=== PATIENT | male | born 2000 | race Caucasian/White ===

== ENCOUNTER 2020-03-03 13:48 | Emergency (ER) | payer OTHER ==
[~2020-03-03] VITALS: Ht 162.6 cm; Wt 86.2 kg
[~2020-03-03 13:48] MED LIST: ABILIFY 5 MG TAB5 M1; ACETAMINOPHEN-1 EAC1 PO; AMOXICILLI400 MG/5 M PO; DEPAKENE250 MG; DESYREL; DESYREL100 MG; DEXEDRINE10 MG PO; IBUPROFEN 600600 M1 PO; INTUNIV2 MG PO; INTUNIV3 MG PO; LITHIUM CARBON300 M6 PO; SEROQUEL; STRATTERA60 MG PO; STRATTERA80 MG PO; TENEX1 MG; VYVANSE60 MG PO; ZOLOFT25 MG PO; ZYRTEC1 MG/1 ML PO; [UNRECOGNIZED DRUG - OTHER]
[2020-03-03] MEDS ORDERED: TRAMADOL 50 MG50 MG PO (14:57)
[2020-03-03 15:12] VITALS: BP 162/77
== END 2020-03-03 15:13 | disposition home or self-care (01) ==
LOC: M.ERS 13:48
DX: S90.122A Contusion of left lesser toe(s) without damage to nail, initial encounter (principal); W22.8XXA Striking against or struck by other objects, initial encounter; Y93.89 Activity, other specified; Y92.89 Other specified places as the place of occurrence of the external cause; Y99.8 Other external cause status

== ENCOUNTER 2020-03-30 17:37 | Emergency (ER) | payer OTHER ==
[~2020-03-30] VITALS: Ht 162.6 cm; Wt 81.7 kg
[~2020-03-30 17:37] MED LIST changes: +TRAMADOL 50 MG50 MG PO
[2020-03-30] MEDS ORDERED: LOTRIMIN AF12 GM TOP (18:06)
[2020-03-30] MEDS ORDERED: TRIAMCINOLONE A80 G2 TOP (18:06)
[2020-03-30 18:22] VITALS: BP 136/79
== END 2020-03-30 18:23 | disposition home or self-care (01) ==
LOC: M.ERS 17:37
DX: R21 Rash and other nonspecific skin eruption (principal)

== ENCOUNTER 2020-04-22 16:10 | Emergency (ER) | payer OTHER ==
[~2020-04-22] VITALS: Ht 162.6 cm; Wt 77.1 kg
[~2020-04-22 16:10] MED LIST changes: +LOTRIMIN AF12 GM TOP; +TRIAMCINOLONE A80 G2 TOP
[2020-04-22 16:34] VITALS: BP 136/70
== END 2020-04-22 16:35 | disposition home or self-care (01) ==
LOC: M.ERS 16:10
DX: S00.03XA Contusion of scalp, initial encounter (principal); W00.0XXA Fall on same level due to ice and snow, initial encounter; Y93.89 Activity, other specified; Y92.89 Other specified places as the place of occurrence of the external cause; Y99.8 Other external cause status

== ENCOUNTER 2020-09-23 14:52 | Emergency (ER) | payer OTHER ==
[~2020-09-23] VITALS: Ht 162.6 cm; Wt 77.1 kg
[2020-09-23] MEDS ORDERED: APAP W/CODEINE1 TA2 PO (16:49)
[2020-09-23] MEDS ORDERED: IBUPROFEN 600600 M1 PO (16:49)
[2020-09-23 17:05] VITALS: BP 134/72
== END 2020-09-23 17:06 | disposition home or self-care (01) ==
LOC: M.ERS 14:52
DX: S63.615A Unspecified sprain of left ring finger, initial encounter (principal); Y04.0XXA Assault by unarmed brawl or fight, initial encounter; Y93.89 Activity, other specified; Y92.89 Other specified places as the place of occurrence of the external cause; Y99.8 Other external cause status

== ENCOUNTER 2020-09-27 15:18 | Emergency (ER) | payer OTHER ==
[~2020-09-27] VITALS: Ht 162.6 cm; Wt 77.1 kg
[~2020-09-27 15:18] MED LIST changes: +APAP W/CODEINE1 TA2 PO
[2020-09-27 15:25] VITALS: BP 141/74
[2020-09-27] MEDS ORDERED: NAPROSYN500 M1 PO (17:20)
== END 2020-09-27 17:40 | disposition home or self-care (01) ==
LOC: M.ERS 15:18
DX: S69.92XA Unspecified injury of left wrist, hand and finger(s), initial encounter (principal); W22.8XXA Striking against or struck by other objects, initial encounter; Y93.89 Activity, other specified; Y92.89 Other specified places as the place of occurrence of the external cause; Y99.8 Other external cause status